=== PATIENT | female | born 1940 | race Two or more races ===

== ENCOUNTER 2017-09-17 12:06 | Outpatient (CLI) | payer OTHER | END 2017-09-17 12:17 | disposition home or self-care (01) | LOC: RAD 501 12:06 | DX: M54.5 Low back pain (principal); M25.561 Pain in right knee ==

== ENCOUNTER → 2019-02-06 | Outpatient (CLI) | payer OTHER | END | disposition home or self-care (01) | LOC: NUCLEAR 07:00 | DX: I11.9 Hypertensive heart disease without heart failure (principal); I45.0 Right fascicular block; R94.31 Abnormal electrocardiogram [ECG] [EKG] ==

== ENCOUNTER 2021-06-01 08:00 | Outpatient (CLI) | payer OTHER | END 2021-06-01 08:30 | disposition home or self-care (01) | LOC: PPH VACUNA 08:00 | PROVIDERS: ATTEND Emergency Medicine Pediatric Emergency Medicine | DX: Z23 Encounter for immunization (principal) ==

== ENCOUNTER 2022-01-01 08:00 | Outpatient (CLI) | payer OTHER | END 2022-01-01 08:30 | disposition home or self-care (01) | LOC: PPH VACUNA 08:00 | PROVIDERS: ATTEND Emergency Medicine Pediatric Emergency Medicine | DX: Z23 Encounter for immunization (principal) ==

== ENCOUNTER 2022-06-20 10:43 | Outpatient (CLI) | payer OTHER | END 2022-06-20 10:53 | disposition home or self-care (01) | LOC: PPH VACUNA 10:43 | PROVIDERS: ATTEND Emergency Medicine Pediatric Emergency Medicine | DX: Z23 Encounter for immunization (principal) ==

== ENCOUNTER 2022-08-23 15:14 | Outpatient (CLI) | payer OTHER | END 2022-08-23 15:20 | disposition home or self-care (01) | LOC: RAD 15:14 | PROVIDERS: ATTEND Orthopaedic Surgery | DX: M25.571 Pain in right ankle and joints of right foot (principal) ==

== ENCOUNTER 2022-12-18 09:00 | Outpatient (CLI) | payer OTHER | END 2022-12-18 09:09 | disposition home or self-care (01) | LOC: LAB 09:00 | PROVIDERS: ATTEND Orthopaedic Surgery | DX: E55.9 Vitamin D deficiency, unspecified (principal); M85.9 Disorder of bone density and structure, unspecified; E56.1 Deficiency of vitamin K; E21.3 Hyperparathyroidism, unspecified; E88.89 Other specified metabolic disorders; M81.8 Other osteoporosis without current pathological fracture ==

== ENCOUNTER 2025-05-24 14:14 | Outpatient (CLI) | payer OTHER | END 2025-05-24 14:18 | disposition home or self-care (01) | LOC: RAD 14:14 | PROVIDERS: ATTEND Physical Medicine & Rehabilitation | DX: M17.12 Unilateral primary osteoarthritis, left knee (principal) ==